=== PATIENT | female | born 1990 | race Caucasian/White ===

== ENCOUNTER 2022-06-10 08:54 | Emergency (ER) | payer OTHER ==
[2022-06-10 09:28] LABS: BASOPHIL 0.4 % (0-2); BILIRUBIN NEGATIVE (NEGATIVE); BLOOD NEGATIVE Ery/uL (NEGATIVE); CLARITY CLEAR (CLEAR); COLOR YELLOW (YELLOW); EOSINOPHIL 2.1 % (0-5); GLUCOSE (U) NORMAL (NORMAL); HCT 40.9 % (37.0-47.0); HGB 14.3 g/dl (12.5-16.0); LEUKOCYTES NEGATIVE Leu/uL (NEGATIVE); LYMPHOCYTE 27.1 % (15-48); MCH 32.1 pg (25.0-31.0); MCV 91.9 fL (78.0-100.0); MONOCYTE 8.3 % (0-12); MPV 8.9 fL (6.0-9.5); NEUTROPHIL 61.9 % (41-80); NITRITE NEGATIVE (NEGATIVE); NRBC 0; PLT 227 K/uL (150-400); PROTEIN NEGATIVE (NEGATIVE); RBC 4.45 M/uL (4.20-5.40); RDW 11.7 % (11.5-14.0); UROBILINOGEN 0.2 mg/dL (0.2-1.0); WBC 5.7 K/uL (4.0-10.5)
[2022-06-10 09:46] LABS: ALBUMIN 4.3 g/dL (3.4-5.0); BILIRUBIN - TOTAL 0.8 mg/dL (0.2-1.0); BUN/CREAT RATIO (CALC) 15.3 RATIO; CREATININE 0.72 mg/dL (0.51-0.95); GLOBULIN (CALCULATION) 3.3 g/dL; POTASSIUM 3.9 mmol/L (3.5-5.1); TOTAL PROTEIN 7.6 g/dL (6.4-8.2)
[2022-06-10 10:05] LABS: CORONAVIRUS 2019 SARS-COV-2 NEGATIVE (NEGATIVE); INFLUENZA A NAA NEGATIVE (NEGATIVE)
== END 2022-06-10 16:39 | disposition home or self-care (01) ==
LOC: FER 08:54
PROVIDERS: Emergency Medicine
DX: O03.9 Complete or unspecified spontaneous abortion without complication (principal); Z20.822 Contact with and (suspected) exposure to COVID-19
CPT/HCPCS: 36415; 76817; 80053; 81003; 82150; 83690; 84702; 85025; 86900; 86901; J1885; J2405; J7030; U0002